=== PATIENT | female | born 1970 | race Caucasian/White ===

== ENCOUNTER 2023-01-01 13:07 | Outpatient (CLI) | payer OTHER | END 2023-01-01 13:08 | disposition home or self-care (01) | LOC: ULT 13:07 | PROVIDERS: ATTEND Internal Medicine | DX: R22.42 Localized swelling, mass and lump, left lower limb (principal); C20 Malignant neoplasm of rectum; R59.0 Localized enlarged lymph nodes ==

== ENCOUNTER 2023-01-06 12:30 | Outpatient (CLI) | payer OTHER | END 2023-01-06 12:31 | disposition home or self-care (01) | LOC: PET 12:30 | PROVIDERS: ATTEND Internal Medicine | DX: C20 Malignant neoplasm of rectum (principal); R93.5 Abnormal findings on diagnostic imaging of other abdominal regions, including retroperitoneum; R59.0 Localized enlarged lymph nodes | CPT/HCPCS: 78815; A9552 ==

== ENCOUNTER 2023-02-26 14:33 | Outpatient (CLI) | payer OTHER | END 2023-02-26 14:34 | disposition home or self-care (01) | LOC: BICCT 14:33 | PROVIDERS: ATTEND Internal Medicine | DX: I26.99 Other pulmonary embolism without acute cor pulmonale (principal); C20 Malignant neoplasm of rectum; R00.0 Tachycardia, unspecified; R91.8 Other nonspecific abnormal finding of lung field | CPT/HCPCS: 71275 ==

== ENCOUNTER 2023-04-06 12:48 | Outpatient (CLI) | payer OTHER | END 2023-04-06 12:49 | disposition home or self-care (01) | LOC: BICRAD 12:48 | PROVIDERS: ATTEND Internal Medicine | DX: C20 Malignant neoplasm of rectum (principal) | CPT/HCPCS: 71046 ==

== ENCOUNTER 2023-04-10 12:16 | Outpatient (CLI) | payer OTHER | END 2023-04-10 12:17 | disposition home or self-care (01) | LOC: CT 12:16 | PROVIDERS: ATTEND Internal Medicine | DX: C20 Malignant neoplasm of rectum (principal); R59.0 Localized enlarged lymph nodes; R91.8 Other nonspecific abnormal finding of lung field; K59.00 Constipation, unspecified | CPT/HCPCS: 71260; 74177; J1642 ==

== ENCOUNTER 2023-06-02 12:37 | Outpatient (CLI) | payer OTHER | END 2023-06-02 12:38 | disposition home or self-care (01) | LOC: BICRAD 12:37 | PROVIDERS: ATTEND Internal Medicine | DX: C20 Malignant neoplasm of rectum (principal) | CPT/HCPCS: 71046 ==

== ENCOUNTER 2023-07-03 14:12 | Outpatient (CLI) | payer OTHER | END 2023-07-03 14:13 | disposition home or self-care (01) | LOC: SCSMRI 14:12 | PROVIDERS: ATTEND Internal Medicine | DX: C20 Malignant neoplasm of rectum (principal); R59.0 Localized enlarged lymph nodes | CPT/HCPCS: 72197 ==